=== PATIENT | male | born 1965 | race African-American/Black ===

== ENCOUNTER 2018-08-30 23:36 | Emergency (ER) | payer MEDICARE, MEDICAID ==
[~2018-08-30] VITALS: Ht 190.5 cm; Wt 127.0 kg
[2018-08-30 23:36] VITALS: BP 117/71
--- NOTE | 2018-08-30 23:49 | ER.PDOC ---
General Chief Complaint: Requesting Medical Care Stated Complaint: Edema Time seen by MD: 23:29 Source: patient Exam Limitations: no limitations History of Present Illness Initial Comments Pt's sister called EMS due to inability to get pt out of chair and into her car. Had appt tomorrow with a doctor in [place], but was unable to get him there. Pt can not bend R leg fully or bear weight on it. Leg has been swollen for more than 1 year, and has not sought treatment for it. Onset: other (more than 1 year ago) Severity: severe Exacerbated By: nothing Relieved By: nothing Prior symptoms/Treatment: No Similar symptoms previous, No Recenly Seen, No Treated by Doctor, No Recently Hospitalized Allergies: Coded Allergies: No Known Allergies (Unverified , 02/23/13) Review of Systems Constitutional: no symptoms reported EENTM: no symptoms reported Respiratory: no symptoms reported Cardiovascular: no symptoms reported Gastrointestinal: no symptoms reported Genitourinary: no symptoms reported Skin: dryness Psychiatric/Neurological: other (decreased sensation to R lower leg (worse in the foot) for almost 1 year) All Other Systems: Reviewed and Negative Physical Exam General Appearance: Alert Lower Extremity: tenderness (over fluctuant regions near R knee), swelling ( severe, entire R leg), pedal edema (3+ on R) Vascular: decreased pulses (difficu) Neuro/Psych: sensory deficit (decreased sensation R lower leg, from about mid lower leg to foot, worse on sole of foot (near absent)) Skin: color nml Back/Neck: nml inspection Respiratory: no resp distress CVS: tachycardia (reg rhythm) Abdomen: non-tender Comments Pt has chronic skin changes/thickening of R lower leg up to around knee. Unable to straighten leg completely, kept flexed at approx 15-20 degrees. Results/Orders Results/Orders Laboratory Tests Test 08/31/18 00:00 08/31/18 00:31 White Blood Count 7.2 10^3/uL (4.5-11.0) Red Blood Count 4.08 10^6/uL (4.50-5.90) Hemoglobin 10.9 g/dL (13.9-16.3) Hematocrit 32.9 % (37.0-53.0) Mean Corpuscular Volume 80.6 fL (78-100) Mean Corpuscular Hemoglobin 26.7 pg (26-34) Mean Corpuscular Hemoglobin Concent 33.1 g/dL (33-37) Red Cell Distribution Width 17.7 % (11.5-14.5) Platelet Count 243 10^3/uL (150-400) Mean Platelet Volume 11.1 fL (7.8-11.0) Neutrophils (%) (Auto) 70.0 % (41.0-85.0) Lymphocytes (%) (Auto) 13.6 % (24.0-44.0) Monocytes (%) (Auto) 13.7 % (5.0-12.0) Neutrophils # (Auto) 5.0 10^3/uL (1.8-7.7) Lymphocytes # (Auto) 1.0 10^3/uL (1.0-4.8) Monocytes # (Auto) 1.0 10^3/uL (0.3-0.8) Absolute Immature Granulocyte (auto 0.01 10^3 u/L (0-2) Eosinophils % 2.2 % (0.0-5.0) Basophils % 0.4 % (0.0-0.2) Basophils # 0.0 10^3/uL (0.0-0.1) Eosinophil Count 0.2 10^3/uL (0.0-0.2) Blood Gas Sample Site RT RADIAL ARTERY Blood Gas pH 7.379 (7.350-7.450) Blood Gas PCO2 18.8 mmHg (35.0-45.0) Blood Gas PO2 103.9 mmHg (75.0-100.0) Blood Gas HCO3 10.8 mmol/L (22.0-26.0) Blood Gas Base Excess -12.1 mmol/L (-2.0-2.0) Andres Test POSITIVE Arterial Blood Oxygen Saturation 96.4 % (95-) Deoxyhemoglobin 3.5 % (0.2-0.6) Carboxyhemoglobin 2.4 % (0.5-1.5) Methemoglobin 0.2 % (0.2-0.6) Total Hemoglobin 11.5 % (13.5-17.5) Total Oxygen Concentration 15.3 % (13.5-17.5) Lactic Acid (Blood Gas) 11.4 MMOL/L (0.5-1.0) Oxygen Delivery Method (LAB) RA FiO2 21 % (20-101) Sodium Level 140 mmol/L (132-145) Potassium Level 2.5 mmol/L (3.6-5.2) Chloride Level 97.0 mmol/L (96-109) Carbon Dioxide Level 10.6 mmol/L (20.0-32) Bicarbonate 11.4 mmol/L (23-27) Anion Gap 34.9 Blood Urea Nitrogen 5 mg/dL (7-18) Creatinine 0.68 mg/dL (0.59-1.40) Estimated GFR () 147.0 (>/=60) BUN/Creatinine Ratio 7.0 Glucose Level 54 mg/dL (70-110) Calcium Level 8.4 mg/dL (8.4-10.5) Total Bilirubin 0.6 mg/dL (0.2-1.0) Aspartate Amino Transf (AST/SGOT) 70 U/L (0-35) Alanine Aminotransferase (ALT/SGPT) 17 U/L (12-78) Alkaline Phosphatase 62 U/L (50-136) Total Creatine Kinase 89 U/L (39-308) Pro-B-Type Natriuretic Peptide 17 pg/mL (0-125) Total Protein 6.6 g/dL (6.4-8.2) Albumin 2.5 g/dL (3.4-5.0) Globulin 4.1 Percent Immature Gran (Cell Imm) 0.10 % (0.00-0.50) Urine Collection Type CCMS Urine Color YELLOW (YELLOW) Urine Appearance CLEAR (CLEAR) Urine Bilirubin NEGATIVE MG/DL (NEGATIVE) Urine Ketones 150 mg/dL (NEGATIVE) Urine Specific [place] 1.015 (1.005-1.035) Urine pH 6 (5.0-6.0) Urine Protein NEGATIVE (NEGATIVE) Urine Urobilinogen NORMAL (NEGATIVE) Urine Nitrate NEGATIVE (NEGATAIVE) Urine Leukocyte Esterase NEGATIVE (NEGATIVE) Urine Blood 10 TR (NEGATIVE) Urine RBC NONE SEEN RBC/HPF (NONE Urine WBC 2-5 WBC/HPF (0-2) Urine Squamous Epithelial Cells FEW #/HPF (FEW) Urine Bacteria RARE (NONE SEEN) Urine Other MUCUS 1+ #/HPF Urine Glucose NORMAL (NEGATIVE) Administered Medications Medications (Trade) Dose Ordered Sig/Arjun Route PRN Reason Start Time Stop Time Status Last Admin Dose Admin Vancomycin HCl 1.9 gm/Sodium Chloride 300 ml @ 175 mls/hr OT ONCE IV 3/2/19 03:00 08/31/18 04:42 08/31/18 03:23 Morphine Sulfate (Morphine Sulfate) 4 mg STAT STAT IV 08/31/18 03:11 08/31/18 03:14 DC 08/31/18 03:24 Potassium Chloride (Klor-Con 10) 40 meq STAT STAT PO 08/31/18 03:55 08/31/18 03:56 DC 08/31/18 03:58 Progress Progress I have a high suspicion for infection of the knee, likely chronic osteomyelitis , with an elevated lactate and changes seen on CT. I discussed the CT findings with the radiologist as well. Will transfer to [facility] per pt and family request. EKG/XRAY/CT/US EKG: rhythm (sinus tachy), OH (nml), QRS (nml), nonspecific ST T wave chg EKG Comments: no acute ischemic changes seen Departure Time of Disposition: 02:39 Disposition: 70 DISC/XFER TO [facility] Impression: Primary Impression: Osteomyelitis of right knee region Additional Impressions: Mass of right lower leg Hypokalemia Condition: Stable Referrals: GUS DUMONT DO (PCP) PRIMARY CARE PROVIDER Duration or Time Spent with Pa: 45 Problem Qualifiers DANIKA CARPENTER DO Aug 30, 2018 23:49
--- NOTE | 2018-08-30 23:55 | PCM.EKG ---
[facility] Test Date: 2018-08-30 Test Time: 23:52:10 Pat Name: MAMIE MAX Department: Room: Gender: M Process Technician: : 1965 Requested By: DANIKA CARPENTER Order Number: [id number] Reading MD: Danika Carpenter Measurements Intervals [place] Rate: 117 P: 71 VA: 124 QRS: 34 QRSD: 88 T: 24 QT: 332 QTc: 463 Interpretive Statements Sinus tachycardia Nonspecific ST and T wave abnormality Abnormal ECG No previous ECG available for comparison Electronically Signed On 08-31-2018 22:00:38 LEATHER ROLLER by Danika Carpenter Please click the below link to view image of tracing.
[2018-08-31 00:17] LABS: BASOPHIL % 0.4 % (0.0-0.2); EOSINOPHIL # 0.2 10^3/uL (0.0-0.2); EOSINOPHIL % 2.2 % (0.0-5.0); HEMOGLOBIN 10.9 g/dL (13.9-16.3); LYMPHOCYTES % 13.6 % (24.0-44.0); MEAN CELL HGB 26.7 pg (26-34); MEAN CELL HGB CONCENTRATION 33.1 g/dL (33-37); MEAN CORP VOLUME 80.6 fL (78-100); MEAN PLATELET VOLUME 11.1 fL (7.8-11.0); MONOCYTES % 13.7 % (5.0-12.0); RED CELL DISTRIBUTION WIDTH 17.7 % (11.5-14.5); WHITE BLOOD CELL 7.2 10^3/uL (4.5-11.0)
[2018-08-31 00:20] LABS: ABG PCO2 18.8 mmHg (35.0-45.0); ABG PH 7.379 (7.350-7.450); BE(B) -12.1 mmol/L (-2.0-2.0); HCO3act 10.8 mmol/L (22.0-26.0); pO2 103.9 mmHg (75.0-100.0)
[2018-08-31 00:39] LABS: CALCIUM 8.4 mg/dL (8.4-10.5)
[2018-08-31 00:47] LABS: CARBON DIOXIDE 10.6 mmol/L (20.0-32)
--- NOTE | 2018-08-31 01:02 | DIREP ---
PROCEDURE:CHEST 1 VIEW COMPARISON:None. INDICATIONS:leg swelling FINDINGS: LUNGS/PLEURA:No significant pulmonary parenchymal abnormalities. No effusions. VASCULATURE:Normal. Unremarkable pulmonary vasculature. CARDIAC:Normal. No cardiac silhouette abnormality or cardiomegaly. MEDIASTINUM:Normal. No visible mass or adenopathy. BONES:Normal. No fracture or visible bony lesion. OTHER:Negative. CONCLUSION:No acute cardiopulmonary process. Dictated by: Rigo Barrow MD on 08/31/2018 at 01:01 AM
--- NOTE | 2018-08-31 02:31 | DIREP ---
PROCEDURE:CTA LOWER EXTREMITY BILAT COMPARISON:None. INDICATIONS:leg swelling mostly on right pt could not straigten leg TECHNIQUE:After obtaining the patient's consent, CT images were obtained without and with non-ionic intravenous contrast material. Multi-planar MIPs and 3-D images were created to optimize visualization of vascular anatomy. FINDINGS: RIGHT LOWER EXTREMITY COMMON FEMORAL:Patent SUPERFICIAL FEMORAL:Patent POPLITEAL:Patent but diminutive POSTERIOR TIBIAL:Patent but diminutive ANTERIOR TIBIAL:Patent but diminutive PERONEAL:Patent but diminutive LEFT LOWER EXTREMITY COMMON FEMORAL:Patent SUPERFICIAL FEMORAL:Patent POPLITEAL:Patent POSTERIOR TIBIAL:Patent ANTERIOR TIBIAL:Patent PERONEAL:Patent OTHER:Extensive soft tissue swelling and presumed large hematoma with varying density suggesting acute on chronic hematoma is seen throughout the right lower extremity starting at about the knee. Destructive changes are seen in the knee which may suggest osteomyelitis or septic joint in the appropriate clinical setting. There also may be a comminuted fracture through the proximal tibia and distal femur, limited evaluation on this CTA, either a right knee radiograph or MRI of the knee may be beneficial. Internal fixation of the distal right tibia femur is seen. There is extensive large bulky lymphadenopathy in the right lower pelvis and right groin. Artifact of poor filling versus partial thrombus is seen in the left femoral vein. Areas of poor enhancement in the kidneys possibly artifact of motion however pyelonephritis cannot be excluded. CONCLUSION: 1. Extensive soft tissue swelling and edema of the right lower extremity starting at the knee with fluid collection behind the knee, possibly acute on chronic large hematoma. Much of the right lower extremity musculature below the knee is replaced by soft infiltrative tissue density. Large complex atypical infectious process is also on the differential. While unlikely soft tissue sarcoma or neoplasm is also possible. The swelling and soft tissue changes or significant of that compartment syndrome would be a concern. 2. Destructive bony changes in the right knee suggesting septic joint and osteomyelitis. Possible fractures in the distal femur on the right and proximal tibia as well, difficult to visualize on this CTA. Follow-up radiograph of the right knee or MRI is recommended. 3. Extensive lymphadenopathy in the right groin and pelvis probably reactive however metastatic disease cannot be excluded and follow-up after resolution of right lower extremity changes recommended. 4. Areas of poor enhancement in the kidneys possibly artifact of motion however pyelonephritis cannot be excluded. 5. Questionable left femoral vein partial thrombosis versus artifact of poor filling. This report was called by telephone at 2:30 am on August 31, 2018 to Noman Hackett . Dictated by: Rigo Barrow MD on 08/31/2018 at 02:09 AM
[2018-08-31] MEDS ORDERED: NS IV ONE (03:00)
[2018-08-31] MEDS ORDERED: VANCOMYCIN HCL IV ONE (03:00)
[2018-08-31 03:10] LABS: BILIRUBIN,URINE NEGATIVE (NEGATIVE); UROBILINOGEN,URINE NORMAL (NEGATIVE)
[2018-08-31] MEDS ORDERED: MORPHINE SULFATE IV STA (03:11)
[2018-08-31] MEDS ORDERED: NS 500ML 500 ML IV ONE (03:12)
[2018-08-31] MEDS ORDERED: MORPHINE SULFATE ONE (03:12)
[2018-08-31] MEDS ORDERED: VANCOMYCIN HCL 2 GM ONE (03:12)
[2018-08-31 03:13] LABS: APPEARANCE,URINE CLEAR (CLEAR); UA COLOR YELLOW (YELLOW)
[2018-08-31] MEDS ORDERED: KLOR-CON 10 PO ONE (03:53)
[2018-08-31] MEDS ORDERED: KLOR-CON 10 PO STA (03:55)
[2018-08-31 04:00] VITALS: BP 131/65
--- NOTE | 2018-08-31 04:27 | NUR ---
Report Gave report to Marianna at [facility]
[2018-08-31 04:28] VITALS: BP 131/65
== END 2018-08-31 04:00 | disposition other institution (70) ==
LOC: ER 23:36 → EDBD 23:36 → ER 08-31 04:00
DX: M86.9 Osteomyelitis, unspecified (principal); R22.41 Localized swelling, mass and lump, right lower limb; E87.6 Hypokalemia; Z79.899 Other long term (current) drug therapy
CPT/HCPCS: 36415; 36600; 71045; 73706; 80053; 81000; 82550; 82803; 83880; 85025; 87040 ×2; 87086; 93005; 96365; 96375; 99285; J2270; J3480; J7040; J7050; Q9965